=== PATIENT | male | born 1950 | race Caucasian/White ===

== ENCOUNTER 2025-04-02 13:08 | Outpatient (CLI) | payer MEDICARE, OTHER | END 2025-04-02 13:09 | disposition home or self-care (01) | LOC: SCSMRI 13:08 | PROVIDERS: ATTEND Student in an Organized Health Care Education/Training Program | DX: R25.3 Fasciculation (principal); I67.82 Cerebral ischemia; R90.89 Other abnormal findings on diagnostic imaging of central nervous system | CPT/HCPCS: 70553; 76376 ==